=== PATIENT | female | born 1990 | race Caucasian/White ===

== ENCOUNTER 2019-11-26 08:14 | Emergency (ER) | payer MEDICAID ==
[~2019-11-26] VITALS: Ht 162.6 cm; Wt 59.0 kg
[2019-11-26] MEDS ORDERED: NACL 0.9% 1,000 ML IV ONE ×2 (08:23→10:45)
--- NOTE | 2019-11-26 08:23 | NUR ---
AMB TO BED 11
[2019-11-26] MEDS ORDERED: ONDANSETRON 4 MG/2 ML VIAL IVP ONE (08:25)
[2019-11-26] MEDS ORDERED: MORPHINE SULFATE 4 MG/ML SYR IVP ONE (08:25)
--- NOTE | 2019-11-26 08:28 | NUR ---
DR. WESLEY EVALUATING PT AT BEDSIDE
[2019-11-26] MEDS ORDERED: LIDOCAINE VISCOUS 2% 20 ML UDC ONE (08:43)
[2019-11-26] MEDS ORDERED: DICYCLOMINE HCL LIQUID 10 MG/5 ML UDC ONE (08:43)
[2019-11-26] MEDS ORDERED: ALUMINUM HYD/MAG/SIMETHICONE 30 ML UDC ONE (08:43)
[2019-11-26] MEDS ORDERED: DICYCLOMINE HCL LIQUID 20 MG, ALUMINUM HYD/MAG/SIMETHICONE 30 ML, LIDOCAINE VISCOUS 2% ... PO ONE ×3 (08:45)
[2019-11-26 08:48] LABS: BASOPHILS % (AUTO) 0.4 % (0.0-2.0); EOSINOPHILS % (AUTO) 0.1 % (0.0-4.0); HEMATOCRIT 45.7 % (36-48); HEMOGLOBIN 15.2 g/dL (12.0-16.0); LYMPHOCYTES # (AUTO) 1.6 K/uL (2.5-16.5); LYMPHOCYTES % (AUTO) 12.8 % (20.5-51.1); MEAN CORPUSCULAR HEMOGLOBIN 31 pg (27-31); MEAN CORPUSCULAR HGB CONC 33 g/dL (33-37); MEAN CORPUSCULAR VOLUME 93.5 fL (80-94); MONOCYTES # (AUTO) 0.7 K/uL (0.8-1.0); NEUTROPHILS # (AUTO) 9.9 K/uL (1.8-7.7); NEUTROPHILS % (AUTO) 80.7 % (42.2-75.2); PLATELET COUNT (AUTO) 280 K/uL (140-450); RED BLOOD CELL COUNT(AUTO) 4.89 MIL/uL (4.20-5.40); RED CELL DISTRIBUTION WIDTH 13.2 % (11.6-13.7); WHITE BLOOD COUNT (AUTO) 12.2 K/uL (4.8-10.8)
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
--- NOTE | 2019-11-26 08:53 | NUR ---
PATIENT UNABLE TO URINATE AT THIS TIME, URINE CUP AT BEDSIDE
[2019-11-26 09:05] LABS: ALBUMIN 4.6 g/dL (3.4-5.0); ANION GAP 22.7 (8-16); CARBON DIOXIDE 19.3 mmol/L (21-32); CREATININE 0.9 mg/dL (0.6-1.3)
[2019-11-26] MEDS ORDERED: LORazepam 2 MG/ML VIAL IVP ONE (09:20)
[2019-11-26 10:08] LABS: APPEARANCE,URINE SL CLOUDY (CLEAR); BILIRUBIN,URINE NEGATIVE (NEGATIVE); BLOOD, URINE 2+ (NEGATIVE); COLOR,URINE YELLOW (YELLOW); LEUKOCYTE ESTERASE ,URINE NEGATIVE (NEGATIVE); NITRITE, URINE NEGATIVE (NEGATIVE); PH,URINE 8.5 (5.0-9.0); UGLUCOSE NEGATIVE (NEGATIVE)
[2019-11-26 10:22] LABS: WBC,URINE 0-5 /HPF (0-5)
[2019-11-26] MEDS ORDERED: POTASSIUM CHLORIDE 10 MEQ TABER PO ONE (10:45)
[2019-11-26 11:38] VITALS: BP 107/64
--- NOTE | 2019-11-26 11:38 | NUR ---
Patient discharged with v/s stable. Written and verbal after care instructions given and explained. Patient alert, oriented and verbalized understanding of instructions. Ambulatory with STEADY GAIT. All questions addressed prior to discharge. ID band removed. Patient advised to follow up with PMD. Rx of MY,ANTA, TYENOL given. Patient educated on indication of medication including possible reaction and side effects. Opportunity to ask questions provided and answered.
== END 2019-11-26 11:38 | disposition home or self-care (01) ==
LOC: MED 08:14
DX: R10.10 Upper abdominal pain, unspecified (principal); R63.0 Anorexia; R11.0 Nausea
CPT/HCPCS: 36415; 80053; 81001; 81025; 83690; 85025; 96361; 96374; 96375; 99284; J2060; J2270; J2405; J7030; 81002

== ENCOUNTER 2021-02-11 10:16 | Emergency (ER) | payer MEDICAID ==
[~2021-02-11] VITALS: Ht 162.6 cm; Wt 58.5 kg
[2021-02-11 10:20] VITALS: BP 137/80
--- NOTE | 2021-02-11 10:25 | NUR ---
PT AMBULATED TO ER BED 8
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
[2021-02-11] MEDS ORDERED: KETOROLAC 60 MG/2 ML VIAL IM ONE (10:35)
[2021-02-11] MEDS ORDERED: MORPHINE SULFATE 4 MG/ML SYR IM ONE (11:35)
[2021-02-11] MEDS ORDERED: ACET-8386 PO (12:01)
[2021-02-11] MEDS ORDERED: IBUP-2213 PO (12:01)
[2021-02-11 12:10] VITALS: BP 124/84
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
== END 2021-02-11 12:10 | disposition home or self-care (01) ==
LOC: MED 10:16
DX: S13.4XXA Sprain of ligaments of cervical spine, initial encounter (principal); V89.2XXA Person injured in unspecified motor-vehicle accident, traffic, initial encounter; Y93.89 Activity, other specified; Y92.89 Other specified places as the place of occurrence of the external cause; Y99.8 Other external cause status
CPT/HCPCS: 96372; 99284; J1885; J2270